=== PATIENT | female | born 1990 | race Caucasian/White ===

== ENCOUNTER 2017-08-29 14:06 | Emergency (ER) | payer OTHER ==
[~2017-08-29] VITALS: Ht 160 cm; Wt 63.5 kg
[2017-08-29 15:25] LABS: URINE BLOOD NEGATIVE (Negative); URINE CLARITY SL CLOUDY; URINE COLOR YELLOW; URINE GLUCOSE-RANDOM* NEGATIVE (Negative); URINE KETONES 3+ (Negative); URINE LEUKOCYTES-REFLEX NEGATIVE (Negative); URINE NITRITE-REFLEX NEGATIVE (Negative); URINE PROTEIN (DIPSTICK) TRACE (Negative); URINE SPECIFIC GRAVITY >= 1.030 (1.005-1.035); URINE UROBILINOGEN 0.2 E.U./dl (0.2-1.0)
[2017-08-29 15:31] LABS: ICTOTEST (BILI CONFIRMATORY) Negative (Negative); URINE BILIRUBIN NEGATIVE (Negative)
[2017-08-29 16:15] LABS: ABSOLUTE NEUTROPHILS 8.5 thou/uL (1.4-8.2); BASOPHILS 0.1 % (0.0-2.0); EOSINOPHILS 0.3 % (0.0-3.0); HEMOGLOBIN 15.8 gm/dL (12.0-15.0); LYMPHOCYTES 3.2 % (24.0-44.0); MCH 29.7 pg (26.0-34.0); MCHC 35.2 g/dL (28.0-37.0); MCV 84.5 fL (80.0-100.0); MONOCYTES 3.7 % (1.0-8.0); PLATELET COUNT 256 thou/uL (150-400); POLYS 92.7 % (36.0-66.0); RBC 5.32 mil/uL (4.20-5.00); RDW 12.8 % (10.5-14.5); WBC 9.1 thou/uL (4.0-11.0)
[2017-08-29 16:32] LABS: ANION GAP 11 mmol/L (7-16); BUN 20 mg/dL (7-18); CHLORIDE 103 mmol/L (98-107); CO2 19 mmol/L (21-32); CREATININE 0.8 mg/dL (0.6-1.0); GLUCOSE 92 mg/dL (74-106); POTASSIUM 4.2 mmol/L (3.5-5.1); SODIUM 133 mmol/L (136-145)
[2017-08-29] MEDS ORDERED: JUNEL FE 1-201 EACH PO (16:47)
[2017-08-29 16:50] LABS: LIPASE 164 U/L (73-393); SGOT 27 U/L (15-37); TOTAL PROTEIN 7.9 g/dL (6.4-8.2)
[2017-08-29 17:02] LABS: ALBUMIN 3.7 g/dL (3.4-5.0); SGPT 19 U/L (30-65)
[2017-08-29 17:29] LABS: TOTAL BILIRUBIN QNS mg/dL (<0.1-1.0)
[2017-08-29] MEDS ORDERED: BENTYL 20 MG TA20 M1 PO (17:33)
[2017-08-29] MEDS ORDERED: ONDANSETRON HCL4 M2 PO (17:35)
[2017-08-29] MEDS ORDERED: PROTONIX 20 MG20 M1 PO (17:35)
[2017-08-29 18:40] VITALS: BP 113/69
== END 2017-08-29 18:55 | disposition home or self-care (01) ==
LOC: ER 14:06
PROVIDERS: Nurse Practitioner Family
DX: K52.9 Noninfective gastroenteritis and colitis, unspecified (principal); E86.0 Dehydration; K62.89 Other specified diseases of anus and rectum